=== PATIENT | female | born 1995 | race American Indian/Alaskan Native ===

== ENCOUNTER 2019-09-29 23:00 | Inpatient (IN) | payer MEDICAID ==
[2019-09-29] MEDS: LACTATED RINGERS 1,000 ML IV SCH (23:30)
[2019-09-29] MEDS ORDERED: LACTATED RINGERS 1,000 ML ONE (23:35)
[2019-09-29] MEDS ORDERED: OXYTOCIN 20 UNIT/1000ML DRIP 20 UNITS/1,000 ML BAG IV SCH (23:45)
[2019-09-29] MEDS ORDERED: fentaNYL 100 MCG/2 ML INJ IV PRN (23:57)
[2019-09-29] MEDS ORDERED: LIDOCAINE (2%) 20 MG/1 ML VIAL 20 ML MDV INFILTRATI ONE (23:57)
[2019-09-29] MEDS ORDERED: MINERAL OIL 30 ML ORAL LIQD PO PRN (23:57)
[2019-09-29] MEDS ORDERED: TERBUTALINE 1 MG/1 ML INJ SUB-Q PRN (23:57)
[2019-09-29] MEDS ORDERED: TERBUTALINE 1 MG/1 ML INJ IVP PRN (23:57)
[2019-09-30 00:18] LABS: Hematocrit 33.5 % (30.3-42.9); Hemoglobin 11.9 gm/dl (10.1-14.3); Mean Corpuscular HGB Conc 36 % (30-34); Mean Corpuscular Volume 85 fl (79-97); Platelet Count 201 K/mm3 (140-440); Red Blood Count 3.94 M/mm3 (3.65-5.03); Red Cell Distribution Width 14.2 % (13.2-15.2)
[2019-09-30] MEDS ORDERED: DEXMEDETOMIDINE 200 MCG/2 ML VIAL IV ONE (00:30)
[2019-09-30] MEDS ORDERED: SODIUM CHLORIDE P/F VIAL 10 ML 10 ML ONE (00:30)
[2019-09-30] MEDS: LACTATED RINGERS 1,000 ML IV SCH ×3 (00:30→03:37)
[2019-09-30] MEDS ORDERED: ePHEDrine SULFATE 50 MG/1 ML INJ IV PRN (00:42)
[2019-09-30] MEDS ORDERED: NALOXONE 2 MG/2 ML INJ IV PRN (00:42)
--- NOTE | 2019-09-30 00:43 | Anesthesia Consultation ---
Anesthesia Consult and Med Hx Date of service: 09/30/19 - Airway Anesthetic Teeth Evaluation: Good ROM Head & Neck: Adequate Mental/Hyoid Distance: Adequate Mallampati Class: Class II Intubation Access Assessment: Probably Good - Pulmonary Exam CTA: Yes - Cardiac Exam Cardiac Exam: RRR - Pre-Operative Health Status ASA Pre-Surgery Classification: ASA3 Proposed Anesthetic Plan: Epidural - Pulmonary Hx Smoking: Yes Hx Asthma: No - Cardiovascular System Hx Hypertension: No - Hematic Hx Anemia: No - Other Systems Hx Alcohol Use: Yes Hx Substance Use: Yes (Marijuana)
--- NOTE | 2019-09-30 00:54 | History and Physical Report ---
History of Present Illness Date of examination: 09/30/19 Date of admission: 09/29/19 23:56 Chief complaint: My water broke History of present illness: Pt is a 23 year old who presents at 40 weeks with SROM. Her course has been uncomplicated. She transferred into [facility] at 23 weeks gestation after receiving care in [place]. She is GBS negative. Past History Past Medical History: no pertinent history Past Surgical History: no surgical history Family/Genetic History: none Social history: single - Obstetrical History Expected Date of Delivery: 09/30/19 Actual Gestation: 40 Week(s) 0 Day(s) : 2 Para: 0 Number of Living Children: 0 Medications and Allergies Allergies Allergy/AdvReac Type Severity Reaction Status Date / Time No Known Allergies Allergy Unverified 09/29/19 23:55 Active Meds: Active Medications Ephedrine Sulfate (Ephedrine Sulfate) 10 mg IV Q2M PRN PRN Reason: Hypotension Ephedrine Sulfate (Ephedrine Sulfate) 10 mg IV Q2M PRN PRN Reason: Hypotension Fentanyl (Sublimaze) 100 mcg IV Q2H PRN PRN Reason: Labor Pain Lactated Ringer's (Lactated Ringers) 1,000 mls @ 125 mls/hr IV DIRECT BENIGNO Oxytocin/Sodium Chloride (Pitocin/Ns 20 Unit/1000ml Drip) 20 units in 1,000 mls @ 125 mls/hr IV DIRECT BENIGNO Fentanyl/Bupivacaine/Sodium Chlor (Fentanyl-Bupiv 2 Mcg/Ml-0.125%) 200 mcg in 100 mls @ 12 mls/hr EPIDURAL TITR BENIGNO; Protocol Mineral Oil (Mineral Oil) 30 ml PO QHS PRN PRN Reason: Constipation Naloxone HCl (Naloxone) 0.2 mg IV Q5M PRN PRN Reason: Respiratory sedation Terbutaline Sulfate (Brethine) 0.25 mg SUB-Q ONCE PRN PRN Reason: Hyperstimulation/Hypertonicity Terbutaline Sulfate (Brethine) 0.25 mg IVP ONCE PRN PRN Reason: Hyperstimulation/Hypertonicity Review of Systems All systems: negative Eyes: deferred Genitourinary: leakage of fluid, contractions Rectal Exam: deferred - Vital Signs Vital signs: Vital Signs Pulse BP 76 117/68 09/30/19 00:15 09/30/19 00:15 Temp Pulse Resp BP Pulse Ox 81 117/68 100 09/30/19 00:48 09/30/19 00:15 09/30/19 00:48 - Physical Exam Breasts: Positive: deferred Cardiovascular: Regular rate, Normal S1, Normal S2 Lungs: Positive: Clear to auscultation, Normal air movement Abdomen: Positive: normal appearance, soft, normal bowel sounds. Negative: distention, tenderness Genitourinary (Female): Positive: normal external genitalia, normal perenium Vulva: both: normal Vagina: Positive: normal moisture. Negative: discharge Cervix: Negative: lesion, discharge Uterus: Positive: normal size, normal contour Adnexa: both: normal Anus/Rectum: Positive: normal perianal skin, heme negative. Negative: rectal mass, hemorrhoids Extremities: Deep Tendon Reflex Grade: Normal +2 - Obstetrical FHR: auscultation normal Cervical Dilatation: 2 Cervical Effacement Percentage: 80 station: -2 Uterine Contraction Pattern: Regular Uterine Tone Measurement Phase: Contraction Uterine Contraction Intensity: Moderate Results Result Diagrams: 09/29/19 23:40 Abnormal lab results 09/29/19 Range/Units 23:40 MCHC 36 H (30-34) % All other labs normal. Assessment and Plan IUP at 40 weeks in active labor with srom. Admit to L&D. GBS negative, so no need for antibiotics. Anticipate .
[2019-09-30] MEDS ORDERED: fentaNYL-BUPIV 2 MCG/ML-0.125% 200 MCG/100 ML BAG EPIDURAL SCH (01:00)
[2019-09-30] MEDS: ePHEDrine SULFATE 50 MG/1 ML INJ IV PRN ×2 (01:30→01:45)
[2019-09-30] MEDS ORDERED: BUPIVACAINE/PF (0.25%) 2.5 MG/ML 10 ML VIAL INFILTRATI ONE (02:36)
--- NOTE | 2019-09-30 05:37 | Procedure Note ---
OB Delivery Note - Delivery Date of Delivery: 09/30/19 Surgeon: CELESTINO GLEASON Estimated blood loss: 200cc - Vaginal Delivery presentation: vertex Delivery position: OP Intrapartum events: PROM->1hr before delivery Delivery induction: none Delivery monitor: external FHT Route of delivery: Delivery placenta: spontaneous Delivery cord: nuchal cord (x3), true knot Episiotomy: none Delivery laceration: none Anesthesia: epidural Delivery comments: Viable female delivered over intact perineum at 0459 with triple nuchal cord reduced on the perineum, as well as a true knot. Weight 2643 grams/5 pounds 13 ounces. apgars 8/9. Placenta delivered spontaneously and intact with 3vc. No lacerations. Patient tolerated procedure well. - A at 1 minute: 8 at 5 minutes: 9 Gender: Female (2643 grams)
[2019-09-30] MEDS ORDERED: ONDANSETRON 4 MG/2 ML INJ IV PRN (09:45)
[2019-09-30] MEDS ORDERED: ACETAMINOPHEN 325 MG TAB PO PRN (09:45)
[2019-09-30] MEDS ORDERED: PROMETHAZINE 25 MG RECT SUPP PR PRN (09:45)
[2019-09-30] MEDS ORDERED: diphenhydrAMINE 25 MG CAP PO PRN (09:45)
[2019-09-30] MEDS ORDERED: LANOLIN/ZINC/DIMETHICONE (LANSINOH) 7 GM TP PRN (09:45)
[2019-09-30] MEDS ORDERED: WITCH HAZEL/ GLYCERIN PAD TP PRN (09:45)
[2019-09-30] MEDS ORDERED: MAGNESIUM HYDROXIDE (MOM) ORAL LIQD UDC PO PRN (09:45)
[2019-09-30] MEDS ORDERED: PROMETHAZINE 25 MG TAB PO PRN (09:45)
[2019-09-30] MEDS ORDERED: HYDROcodone/ACETAMINOPHEN 5-325 MG TAB PO PRN (09:45)
[2019-09-30] MEDS: IBUPROFEN 600 MG TAB PO SCH ×3 (10:17→18:36)
[2019-09-30] MEDS: DOCUSATE SODIUM 100 MG CAP PO SCH (10:17)
[2019-09-30] MEDS: PRENATAL VIT27-FE FUMARATE-FOLIC ACID VIT TAB PO SCH (10:17)
[2019-09-30 23:32] LABS: Hematocrit 28.2 % (30.3-42.9)
[2019-10-01] MEDS: IBUPROFEN 600 MG TAB PO SCH ×2 (06:25→21:39)
--- NOTE | 2019-10-01 09:14 | Progress Note ---
Assessment and Plan PPD 1 s/p . Doing well. Plan for discharge on today Subjective - Subjective Date of service: 10/01/19 Interval history: Pt is a 23 year old who presents at 40 weeks with SROM. Her course has been uncomplicated. She transferred into [facility] at 23 weeks gestation after receiving care in [place]. She is GBS negative. Patient reports: appetite normal, voiding normally, pain well controlled, ambula ting normally [place]: doing well Objective - Vital Signs Latest vital signs: Vital Signs Temp Pulse Resp BP BP Pulse Ox 10/01/19 08:09 98.6 F 96 H 20 120/79 100 10/01/19 03:39 98.8 F 77 16 119/67 09/30/19 22:01 98.6 F 79 16 111/60 09/30/19 12:09 98.6 F 89 18 102/56 98 09/30/19 09:15 97.8 F 89 18 111/71 99 Intake and Output 09/30/19 10/01/19 10/01/19 22:59 06:59 14:59 Intake Total 420 Balance 420 Intake: Oral 120 Intake, Free Water 300 Other: Total, Intake Amount 120 # Voids Void 1 - Exam Breasts: Present: deferred Lungs: Present: Clear to auscultation, Normal air movement Abdomen: Present: normal appearance, soft, normal bowel sounds Uterus: Present: normal, firm Extremities: Present: normal - Labs Labs: Abnormal lab results 09/30/19 Range/Units 23:07 Hgb 10.0 L (10.1-14.3) gm/dl Hct 28.2 L (30.3-42.9) %
--- NOTE | 2019-10-01 09:15 | Discharge Summary ---
Providers - Providers Date of Admission: 09/29/19 23:56 Date of discharge: 10/01/19 Attending physician: CELESTINO GLEASON Primary care physician: CELESTINO GLEASON Hospitalization Reason for admission: active labor, rupture of membranes Delivery: Other procedures: none complications: none Discharge diagnosis: IUP at term delivered [place] baby: female Hospital course: unremarkable Condition at discharge: Good Disposition: DC-01 TO HOME OR SELFCARE Plan - Discharge Medications Prescriptions: Ibuprofen [Motrin] 800 mg PO Q8HR PRN #40 tablet PRN Reason: Pain, Mild (1-3) Pnv No.121/Iron/Folic Acid [ Multivitamin Tablet] 1 each PO DAILY #30 tablet - Provider Discharge Summary Activity: routine, no sex for 6 weeks, no heavy lifting 4 weeks, no strenuous exercise Diet: routine Instructions: routine Additional instructions: [] Smoking cessation referral if applicable(refer to patient education folder for contact #) [] Refer to [facility] Book[facility] Call your doctor immediately for: * Fever > 100.5 * Heavy vaginal bleeding ( >1 pad per hour) * Severe persistent headache * Shortness of breath * Reddened, hot, painful area to leg or breast * Drainage or odor from incision. * Keep incision clean and dry at all times and follow doctor's instructions regarding bathing/showering - Follow up plan Follow up: CELESTINO GLEASON MD [Primary Care Provider] - 6 Weeks
[2019-10-01] MEDS: PRENATAL VIT27-FE FUMARATE-FOLIC ACID VIT TAB PO SCH (09:48)
[2019-10-01] MEDS: DOCUSATE SODIUM 100 MG CAP PO SCH ×2 (09:48→21:39)
[2019-10-02] MEDS: PRENATAL VIT27-FE FUMARATE-FOLIC ACID VIT TAB PO SCH (10:54)
[2019-10-02] MEDS: IBUPROFEN 600 MG TAB PO SCH (10:54)
[2019-10-02] MEDS: DOCUSATE SODIUM 100 MG CAP PO SCH (10:55)
--- NOTE | 2019-10-02 11:06 | Progress Note ---
Assessment and Plan PPD 2 doing well. Discharge was cancelled on yesterday due to needing phototherapy. Will plan for discharge on today. Subjective - Subjective Date of service: 10/02/19 Interval history: Pt is a 23 year old who presents at 40 weeks with SROM. Her course has been uncomplicated. She transferred into [facility] at 23 weeks gestation after receiving care in [place]. She is GBS negative. Patient reports: appetite normal, voiding normally [place]: doing well Objective - Vital Signs Latest vital signs: Vital Signs Temp Pulse Resp BP BP Pulse Ox 10/02/19 08:45 98.6 F 91 H 20 109/76 10/02/19 00:44 97.6 F 76 20 111/70 99 10/01/19 16:37 98.5 F 96 H 20 113/74 98 Intake and Output 10/01/19 10/02/19 10/02/19 22:59 06:59 14:59 Intake Total 480 480 120 Balance 480 480 120 Intake: Oral 480 480 120 Other: Total, Intake Amount 240 240 120 # Voids Void 1 1 1
[2019-10-02 18:13] VITALS: BP 134/59
== END 2019-10-02 18:15 | disposition home or self-care (01) | DRG 775 ==
LOC: TRG 23:00 → LD 23:28 → TRG 23:56 → LD 23:56 → OBSVTOIN 23:56 → OB 09-30 09:43
PROVIDERS: ADMIT Obstetrics & Gynecology; ATTEND Obstetrics & Gynecology
PROC: 10E0XZZ Delivery of Products of Conception, External Approach (ICD-10-PCS; principal; 2019-09-30)
PROC: 3E0R3BZ Introduction of Anesthetic Agent into Spinal Canal, Percutaneous Approach (ICD-10-PCS; 2019-09-30)
PROC: 00HU33Z Insertion of Infusion Device into Spinal Canal, Percutaneous Approach (ICD-10-PCS; 2019-09-30)
DX: O42.02 Full-term premature rupture of membranes, onset of labor within 24 hours of rupture (principal); Z3A.40 40 weeks gestation of pregnancy; Z37.0 Single live birth; O69.81X0 Labor and delivery complicated by cord around neck, without compression, not applicable or unspecified
CPT/HCPCS: 36415; 85014; 85018; 85027; 86850; 86900; 86901; G0378; J2590; J3490; J7120